=== PATIENT | male | born 1975 | race African-American/Black ===

== ENCOUNTER 2020-11-02 13:31 | Emergency (ER) | payer BC ==
[~2020-11-02] VITALS: Ht 175.3 cm; Wt 104.0 kg
[2020-11-02] MEDS ORDERED: CLONIDINE 0.2MG TABLET PO ONE (14:15)
[2020-11-02] MEDS ORDERED: AMLODIPINE 10MG TABLET PO ONE (14:15)
[2020-11-02] MEDS ORDERED: IBUPROFEN 400MG TABLET PO ONE (14:30)
[2020-11-02] MEDS ORDERED: ACETAMINOPHEN WITH CODEINE 300/30MG TABLET PO ONE (14:30)
[2020-11-02 15:50] VITALS: BP 156/90
== END 2020-11-02 15:56 | disposition home or self-care (01) ==
LOC: ER 13:55
DX: I10 Essential (primary) hypertension (principal); M25.512 Pain in left shoulder; V49.59XA Passenger injured in collision with other motor vehicles in traffic accident, initial encounter; Y93.89 Activity, other specified; Y92.89 Other specified places as the place of occurrence of the external cause; Y99.8 Other external cause status
CPT/HCPCS: 73030; 93005; 99284